=== PATIENT | female | born 1945 | race American Indian/Alaskan Native ===

== ENCOUNTER 2016-09-24 15:41 | Inpatient (IN) | payer MEDICARE, BC ==
[2016-09-24] MEDS ORDERED: Sodium Chloride 0.9% 1,000 ML IV ONE (16:15)
--- NOTE | 2016-09-24 16:49 | C.PDOC ---
History Of Present Illness 71 y/o female presents to the ED with complains of syncopal episode. Pt had dialysis 2 days ago, went shopping and had syncopal episode, fell and hit left orbital area on ground. EMS arrived wanting to take her to [place] which she refused so she had appointment with Dr Ambrocio velasquez who referred her to ED for CT scan and evaluation. Pt reports feeling weaker than usual right after dialysis. Denies vision changes, chest pain, SOB, abdominal pain, vomiting, back pain or any other complaints. Time Seen by Provider: 09/24/16 16:13 Chief Complaint (Nursing): Syncope History Per: Patient History/Exam Limitations: no limitations Onset/Duration Of Symptoms: Mins Current Symptoms Are (Timing): Gone Activity At Onset Of Symptoms: Walking Fall Associated With With Symptoms: Yes Severity: Mild Recent travel outside of the [place] States: No Past Medical History Reviewed: Historical Data, Nursing Documentation, Vital Signs Vital Signs: Last Vital Signs Temp 97.5 F L 09/24/16 16:00 Pulse 65 09/24/16 16:00 Resp 16 09/24/16 16:00 BP 167/67 H 09/24/16 16:00 Pulse Ox 96 09/24/16 18:27 - Medical History PMH: HTN, End Stage Renal Disease, Chronic Kidney Disease Family History: States: Unknown Family Hx - Social History Hx Alcohol Use: No Hx Substance Use: No Review Of Systems Except As Marked, All Systems Reviewed And Found Negative. Constitutional: Negative for: Fever Eyes: Negative for: Vision Change Cardiovascular: Negative for: Chest Pain Respiratory: Negative for: Shortness of Breath Gastrointestinal: Negative for: Vomiting, Abdominal Pain Musculoskeletal: Negative for: Back Pain Neurological: Positive for: Other (syncopal episode) Physical Exam - Physical Exam Appears: Non-toxic, No Acute Distress Skin: Warm, Dry, No Rash Head: Normacephalic, Abrasion (left brow), No Laceration, Other (ecchymostic area to left orbital area) Eye(s): bilateral: PERRL, EOMI Nose: Normal Neck: Normal ROM, Supple Chest: Symmetrical Cardiovascular: Rhythm Regular Respiratory: Normal Breath Sounds, No Rales, No Rhonchi, No Wheezing Gastrointestinal/Abdominal: Soft, No Tenderness Back: No Vertebral Tenderness, No Paraspinal Tenderness Extremity: No Pedal Edema Extremity: Bilateral: Atraumatic Neurological/Psych: Oriented x3, Normal Speech, Normal Cognition ED Course And Treatment - Laboratory Results Result Diagrams: 09/24/16 16:56 09/24/16 16:56 Lab Interpretation: No Acute Changes ECG: Interpreted By Me ECG Rhythm: Sinus Rhythm, 1st Degree HB Rate From EC O2 Sat by Pulse Oximetry: 96 (on room air) Pulse Ox Interpretation: Normal - Radiology CXR: Viewed By Me, Read By Radiologist CXR Interpretation: Yes: No Acute Disease - CT Scan/US CT head Other Rad Studies (CT/US): Read By Radiologist, Radiology Report Reviewed CT/US Interpretation: PROCEDURE: CT HEAD WITHOUT CONTRAST. HISTORY: R/O Bleed. COMPARISON: None available. TECHNIQUE: Axial computed tomography images were obtained through the head/brain without intravenous contrast. Radiation dose: Total exam DLP = 963.09 mGy-cm. FINDINGS: HEMORRHAGE: No intracranial hemorrhage. BRAIN: Diffuse atrophy with prominence of the ventricles and sulci noted. No mass effect or edema. Intracranial atherosclerosis. Scattered periventricular and subcortical white matter hypodensities, which are nonspecific, but often seen with chronic microvascular ischemic disease. Please note that MRI with diffusion imaging is more sensitive in the detection of acute ischemic event. VENTRICLES: No hydrocephalus. CALVARIUM: Unremarkable. PARANASAL SINUSES: Unremarkable as visualized. No significant inflammatory changes. MASTOID AIR CELLS: Unremarkable as visualized. No inflammatory changes. OTHER FINDINGS: Left preseptal and facial soft tissue swelling. 2 tiny rounded radiopaque densities are noted within the soft tissues at the level of the left lateral orbit. IMPRESSION: Generalized atrophy. Nonspecific white matter changes. Left preseptal and facial soft tissue swelling. 2 tiny rounded radiopaque densities are noted within the soft tissues at the level of the left lateral orbit. FINDINGS: RIGHT ORBIT: RIGHT BONY ORBIT: Normal. RIGHT INTRAORBITAL STRUCTURES: Globe : Normal. Extraocular muscles: Normal. Post septal space: Normal. Optic Nerve : Normal. Lacrimal Apparatus: Normal. RIGHT PRESEPTAL SOFT TISSUES: Unremarkable. LEFT ORBIT: LEFT BONY ORBIT: Normal. LEFT INTRAORBITAL STRUCTURES: Globe: Normal. Extraocular muscles: Normal. Post septal space: Normal. Optic Nerve: Normal. . Lacrimal Apparatus: Slight asymmetry, prominence of the lacrimal apparatus on the left compared to the right. This is at the site of the soft tissue injury. Galvez apparatus is by the closest soft tissue foreign body by 6.4 mm. LEFT PRESEPTAL SOFT TISSUES: Preseptal soft tissue swelling. At the site of the swelling, lateral to the orbit, 2 punctate foreign bodies within the soft tissues. Please refer to series 3, images 103-106. OTHER: None. IMPRESSION: Periorbital preseptal soft tissue swelling with 2 small foreign bodies within the cutaneous and subcutaneous tissues. No osseous, globe or retro Conal abnormalities. CT orbits Other Rad Studies (CT/US): Read By Radiologist, Radiology Report Reviewed CT/US Interpretation: PROCEDURE: CT ORBITS WITHOUT CONTRAST. HISTORY: Trauma , left orbital swelling. COMPARISON: None available. TECHNIQUE: Axial CT images of the orbits were obtained. Coronal and sagittal reformats were generated. Radiation dose: Total exam DLP = mGy-cm. FINDINGS: RIGHT ORBIT: RIGHT BONY ORBIT: Normal. RIGHT INTRAORBITAL STRUCTURES: Globe: Normal. Extraocular muscles: Normal. Post septal space: Normal. Optic Nerve: Normal. Lacrimal Apparatus: Normal. RIGHT PRESEPTAL SOFT TISSUES: Unremarkable. LEFT ORBIT: LEFT BONY ORBIT: Normal. LEFT INTRAORBITAL STRUCTURES: Globe: Normal. Extraocular muscles: Normal. Post septal space: Normal. Optic Nerve: Normal. . Lacrimal Apparatus: Slight asymmetry, prominence of the lacrimal apparatus on the left compared to the right. This is at the site of the soft tissue injury. Galvez apparatus is by the closest soft tissue foreign body by 6.4 mm. LEFT PRESEPTAL SOFT TISSUES: Preseptal soft tissue swelling. At the site of the swelling, lateral to the orbit, 2 punctate foreign bodies within the soft tissues. Please refer to series 3, images 103- 106. OTHER: None. IMPRESSION: Periorbital preseptal soft tissue swelling with 2 small foreign bodies within the cutaneous and subcutaneous tissues. No osseous, globe or retro Conal abnormalities. Progress Note: Plan: labs, CT head, EKG, CXR, UA, IV fluids Reassessment Condition: Unchanged - Physician Consult Information Physician Contacted: Newton Albrecht Outcome Of Conversation: admit to hospitalist Disposition Discussed With : Obinna Brush Doctor Will See Patient In The: Hospital - Disposition Disposition: HOSPITALIZED Disposition Time: 18:30 Condition: STABLE - POA Present On Arrival: None - Clinical Impression Clinical Impression: Syncope, ESRD (end stage renal disease) on dialysis - PA / MACHINE FEEDER / Resident Statement MD/DO has reviewed & agrees with the documentation as recorded. - Scribe Statement The provider has reviewed the documentation as recorded by the Una Evans All medical record entries made by the Una were at my direction and personally dictated by me. I have reviewed the chart and agree that the record accurately reflects my personal performance of the history, physical exam, medical decision making, and the department course for this patient. I have also personally directed, reviewed, and agree with the discharge instructions and disposition. Decision To Admit - Pt Status Changed To: Hospital Disposition Of: Observation - InPatient: Physician Admission Certification: I certify that this patient requires 2 or more midnights of care for the following reason:: syncope. ESRD of HD - . Bed Request Type: Telemetry Admitting Physician: Obinna Brush Patient Diagnosis: Syncope, ESRD (end stage renal disease) on dialysis
[2016-09-24 17:01] LABS: BASO # 0.1 K/uL (0.0-0.2); BASO % 1.9 % (0.0-2.0); EOS # 0.5 K/uL (0.0-0.7); EOS % 8.3 % (0.0-4.0); HEMATOCRIT 35.5 % (34.0-47.0); LYMPH # 1.3 K/uL (1.0-4.3); MEAN CELL VOLUME 93.5 fL (81.0-99.0); MEAN CORPUSCULAR HEMOGLOBIN 31.1 pg (27.0-31.0); MEAN CORPUSCULAR HGB CONC 33.3 g/dL (33.0-37.0); MEAN PLATELET VOLUME 7.8 fL (7.2-11.7); MONO # 0.7 K/uL (0.0-0.8); MONO % 11.9 % (0.0-10.0); RED CELL DISTRIBUTION WIDTH 16.2 % (11.5-14.5)
[2016-09-24 17:09] LABS: CHLORIDE 88 mmol/L (98-107)
[2016-09-24 17:10] LABS: POTASSIUM 4.3 mmol/L (3.6-5.2); SODIUM 138 mmol/L (132-148)
[2016-09-24 17:13] LABS: ALB/GLOB RATIO 1.1 (1.0-2.1); ALKALINE PHOSPHATASE 65 U/L (38-126); ALT/SGPT 17 U/L (9-52); AST/SGOT 19 U/L (14-36); BILIRUBIN,TOTAL 0.4 mg/dL (0.2-1.3); BLOOD UREA NITROGEN 67 mg/dL (7-17); CARBON DIOXIDE 33 mmol/L (22-30); GFR AFRICAN-AMERICAN 6; GLUCOSE,RANDOM 90 mg/dL (65-105); TOTAL PROTEIN 7.5 g/dL (6.3-8.3)
[2016-09-24 17:14] LABS: CALCIUM 9.7 mg/dl (8.6-10.4)
--- NOTE | 2016-09-24 17:19 | RAD ---
HISTORY: SOB COMPARISON: Chest x-ray performed 10/25/12 TECHNIQUE: Chest PA and lateral FINDINGS: LUNGS: No focal consolidation. Please note that chest x-ray has limited sensitivity for the detection of pulmonary masses. PLEURA: No significant pleural effusion identified. No definite pneumothorax . CARDIOVASCULAR: Vascular stent. Mild cardiomegaly. Atherosclerotic calcifications of the aorta. OSSEOUS STRUCTURES: Degenerative changes of the spine. VISUALIZED UPPER ABDOMEN: Unremarkable. OTHER FINDINGS: None. IMPRESSION: No focal consolidation, significant pleural effusion, or definite pneumothorax identified.
[2016-09-24 17:42] LABS: RBC URINE 3 /hpf (0-3); URINE BACTERIA RARE (<OCC); URINE BILIRUBIN NEGATIVE (NEGATIVE); URINE BLOOD NEGATIVE (NEGATIVE); URINE COLOR Yellow (YELLOW); URINE GLUCOSE (UA) 1+ mg/dL (Normal); URINE KETONE NEGATIVE (NEGATIVE); URINE LEUKOCYTE ESTERASE 3+ Leu/uL (Negative); URINE PROTEIN 2+ mg/dL (NEGATIVE); URINE UROBILINOGEN NORMAL mg/dL (0.2-1.0); WBC URINE 87 /hpf (0-5)
--- NOTE | 2016-09-24 17:46 | CT ---
PROCEDURE: CT HEAD WITHOUT CONTRAST. HISTORY: R/O Bleed COMPARISON: None available. TECHNIQUE: Axial computed tomography images were obtained through the head/brain without intravenous contrast. Radiation dose: Total exam DLP = 963.09 mGy-cm. FINDINGS: HEMORRHAGE: No intracranial hemorrhage. BRAIN: Diffuse atrophy with prominence of the ventricles and sulci noted. No mass effect or edema. Intracranial atherosclerosis. Scattered periventricular and subcortical white matter hypodensities, which are nonspecific, but often seen with chronic microvascular ischemic disease. Please note that MRI with diffusion imaging is more sensitive in the detection of acute ischemic event. VENTRICLES: No hydrocephalus. CALVARIUM: Unremarkable. PARANASAL SINUSES: Unremarkable as visualized. No significant inflammatory changes. MASTOID AIR CELLS: Unremarkable as visualized. No inflammatory changes. OTHER FINDINGS: Left preseptal and facial soft tissue swelling. 2 tiny rounded radiopaque densities are noted within the soft tissues at the level of the left lateral orbit. IMPRESSION: Generalized atrophy. Nonspecific white matter changes. Left preseptal and facial soft tissue swelling. 2 tiny rounded radiopaque densities are noted within the soft tissues at the level of the left lateral orbit.
[2016-09-24] MEDS ORDERED: Sodium Chloride 0.9% 1,000 ML ONE (18:03)
--- NOTE | 2016-09-24 18:04 | CT ---
PROCEDURE: CT ORBITS WITHOUT CONTRAST. HISTORY: Trauma, left orbital swelling. COMPARISON: None available. TECHNIQUE: Axial CT images of the orbits were obtained. Coronal and sagittal reformats were generated. Radiation dose: Total exam DLP = mGy-cm. FINDINGS: RIGHT ORBIT: RIGHT BONY ORBIT: Normal. RIGHT INTRAORBITAL STRUCTURES: Globe: Normal. Extraocular muscles: Normal. Post septal space: Normal. Optic Nerve: Normal. Lacrimal Apparatus: Normal. RIGHT PRESEPTAL SOFT TISSUES: Unremarkable. LEFT ORBIT: LEFT BONY ORBIT: Normal. LEFT INTRAORBITAL STRUCTURES: Globe: Normal. Extraocular muscles: Normal. Post septal space: Normal Optic Nerve: Normal. . Lacrimal Apparatus: Slight asymmetry, prominence of the lacrimal apparatus on the left compared to the right. This is at the site of the soft tissue injury. Galvez apparatus is by the closest soft tissue foreign body by 6.4 mm. LEFT PRESEPTAL SOFT TISSUES: Preseptal soft tissue swelling. At the site of the swelling, lateral to the orbit, 2 punctate foreign bodies within the soft tissues. Please refer to series 3, images 103-106. OTHER: None. IMPRESSION: Periorbital preseptal soft tissue swelling with 2 small foreign bodies within the cutaneous and subcutaneous tissues. No osseous, globe or retro Conal abnormalities.
--- NOTE | 2016-09-24 22:42 | CP.PCM.HP ---
<Mirta Ny - Last Filed: 09/24/16 22:12> History of Present Illness - History of Present Illness History of Present Illness: CC "syncope" HPI: Pt is 71F with medical history significant for CAD s/p WILBER placement to RCA and LAD (February & March 2016), CHF, hypertension, and ESRD on hemodialysis TTF who presented to the emergency room after experiencing syncopal event. Patient states she was shopping in the [employer] when she "felt off" and needed to grasp the counter for support. She then came to realize she was on the floor on her left side for unknown length of time due to syncopal event. Patient denies feeling dizzy, confused, nauseous, chest pain, palpitations, or balance impairment. She notes she had hemodialysis earlier that day and was informed more fluid was taken off. The admissions manager rn called an ambulance and patient's blood pressure was 152/70. Patient had trauma to left superior orbit and pain to left hip from the fall. She did not want to be brought to [facility] due to the expected snow storm and because she had an appointment with her lug loader, Dr. Albrecht, today. Dr. Albrecht instructed the patient to come to [facility]3] for CT head as patient takes daily Plavix and Aspirin. Patient denies current symptoms including fever, chills, dizziness, lightheadedness, weakness, chest pain, palpitations, shortness of breath, lower extremity edema, nausea, vomiting, abdominal pain, diarrhea, constipation, and urinary symptoms. Patient admits to pain to palpation to left periorbital region but denies change in vision. PMH: per HPI Medications: Lisinopril 10 mg po BID, Carvidolol 25 mg po BID, Norvasc 10 mg po daily, Hydralazine 25 mg po TID ASA 81 mg po daily, Plavix 75 mg po daily, Atorvastatin 40 mg po HS, Dexlansoprazole 30 mg po daily, Sensipar 30 mg po HS, Renvela 800 mg 2 tab TID, Renavite 1 tab po AM. Allergies: wheat, chocolate, NKDA Family Hx: Mother - [place] at age 54, HTN , Father - pacemaker Surgical Hx: CAD s/p WILBER placement to RCA and LAD (February & March 2016), left cataract surgery, L fistula placement 2012 Social: Never smoker, denies alcohol and illicit drug use Present on Admission - Present on Admission Any Indicators Present on Admission: No History of DVT/PE: No History of Uncontrolled Diabetes: No Urinary Catheter: No Decubitus Ulcer Present: No Review of Systems - Constitutional Constitutional: absent: Chills, Fever, Headache, Lethargy, Weakness - EENT Eyes: Pain, Other (left eye bruising and swelling). absent: Change in Vision Ears: absent: Tinnitus, Disequilibrium, Dizziness Nose/Mouth/Throat: absent: Nasal Discharge - Cardiovascular Cardiovascular: absent: Chest Pain, Diaphoresis, Dyspnea, Leg Edema - Respiratory Respiratory: absent: Dyspnea, Chest Congestion - Gastrointestinal Gastrointestinal: absent: Abdominal Pain, Constipation, Diarrhea, Nausea, Vomiting - Genitourinary Genitourinary: absent: Change in Urinary Stream, Urinary Frequency - Musculoskeletal Musculoskeletal: absent: Arthralgias, Back Pain - Integumentary Integumentary: absent: Changing Lesions, New Lesions - Neurological Neurological: Syncope. absent: Dizziness, Numbness, Focal Weakness, Lack of Coordination, Tingling, Vertigo, Weakness - Psychiatric Psychiatric: absent: Anxiety Past Patient History - Past Social History Smoking Status: Never Smoked - CARDIAC Hx Hypertension: Yes - RENAL Hx Chronic Kidney Disease: Yes - PSYCHIATRIC Hx Substance Use: No Meds Allergies/Adverse Reactions: Allergies Allergy/AdvReac Type Severity Reaction Status Date / Time wheat Allergy ANGIOEDEMA Verified 09/24/16 20:54 chocolate Allergy ITCHING Uncoded 09/24/16 20:54 Physical Exam - Constitutional Appears: Non-toxic, No Acute Distress - Head Exam Head Exam: absent: ATRAUMATIC Additional comments: ecchymosis and edema to left periorbital region, abrasion to left brow - Eye Exam Eye Exam: EOMI, Normal appearance, PERRL - ENT Exam ENT Exam: Mucous Membranes Moist - Neck Exam Neck exam: Positive for: Full Rom, Normal Inspection - Respiratory Exam Respiratory Exam: Clear to Auscultation Bilateral, NORMAL BREATHING PATTERN. absent: Rales, Rhonchi, Wheezes - Cardiovascular Exam Cardiovascular Exam: +S1, +S2. absent: Bradycardia, Tachycardia, Diastolic murmur, Systolic Murmur Additional comments: no carotid bruit - GI/Abdominal Exam GI & Abdominal Exam: Normal Bowel Sounds, Soft. absent: Distended, Firm, Guarding - Extremities Exam Extremities exam: Positive for: pedal pulses present. Negative for: pedal edema , tenderness Additional comments: ecchymosis to left hip, tender to palpation - Back Exam Back exam: NORMAL INSPECTION - Neurological Exam Neurological exam: Alert, CN II-XII Intact, Oriented x3 - Skin Skin Exam: Intact Additional comments: ecchymoses to left periorbital region and hip Results - Vital Signs Recent Vital Signs: Last Vital Signs Temp 97.6 F 09/24/16 20:35 Pulse 69 09/24/16 20:35 Resp 20 09/24/16 20:35 BP 190/73 H 09/24/16 20:35 Pulse Ox 96 09/24/16 20:35 - Labs Result Diagrams: 09/24/16 16:56 09/24/16 16:56 Assessment & Plan - Assessment and Plan (Free Text) Assessment: 1. Syncope EKG: sinus rhythm with first degree AV block, LVH Troponin I <0.0120 f/u AMBER panel f/u MRI Brain w/o contrast, carotid doppler f/u Echo Cardiology consult, Dr. Albrecht, help appreciated. Cardiology consult, Dr. Escobedo - tilt table test CT Head: generalized atrophy, nonspecific white matter changes, no intracranial hemorrhage 2. L Periorbital Trauma secondary to syncopal event CT Orbit: periorbital preseptal spft tissue swelling with 2 small foreign bodies within cutaneous and subcutaneous tissue. No osseous, global, or retrocanal abnormalities 3. L Hip Ecchymosis f/u L hip X-RAY 4. ESRD on HD HD schedule TTF Continue home medications Sensipar Renvela Renavite BUN/CR: 67/8.6 Nephrology consult, Dr. Rosas - help appreciated, f/u recs 5. CAD s/p WILBER placement to LAD and RCA Continue home medications: ASA 81 mg po daily Plavix 75 mg po daily Crestor 40 mg po HS Carvidolol 25 mg po BID Lisinopril 10 mg po BID 6. CHF f/u Echo f/u pro-BNP Cardio consulted 7. HTN Continue home medications Norvasc 10 mg po daily Lisinopril 10 mg po BID Hydralazine 25 mg po TID 8. UTI Initial UA contaminated - + Leuk Esterase f/u repeat UA and Urine culture 9. Prophylaxis Heparin 5,000 U SC q8 SCD Protonix 40 mg po daily - Date & Time Date: 09/24/16 Time: 23:01 <GarcíaKrystian cardenas Mandy - Last Filed: 09/25/16 06:27> Results - Vital Signs Recent Vital Signs: Last Vital Signs Temp 98.0 F 09/24/16 23:40 Pulse 65 09/25/16 02:26 Resp 20 09/24/16 23:40 BP 159/69 H 09/25/16 04:05 Pulse Ox 96 09/24/16 23:40 - Labs Result Diagrams: 09/24/16 16:56 09/24/16 16:56 Labs: Laboratory Results - last 24 hr 09/24/16 22:37 Total Creatine Kinase 49 CK-MB (Mass) 1.50 Troponin I, Quant < 0.0120 Assessment & Plan - Date & Time Date: 09/25/16 (I have seen and examined the patient. I agree with the findings and plan of care as documented by Dr. Ny. Patient with syncopal event. CT head negative. Also hip xray and CT orbit also done. 2D Echo and carotid dopplers. ROMIx3 with EKG. Consult to Cardio also due to CAD history. Consult Nephro for ESRD on dialysis. Monitor for acute changes. Fall precautions.) Time: 06:25 Attending/Attestation - Attestation I have personally seen and examined this patient.: Yes I have fully participated in the care of the patient.: Yes I have reviewed all pertinent clinical information: Yes
[2016-09-25 07:36] LABS: BASO # 0.1 K/uL (0.0-0.2); BASO % 1.3 % (0.0-2.0); EOS # 0.5 K/uL (0.0-0.7); EOS % 7.9 % (0.0-4.0); HEMATOCRIT 33.2 % (34.0-47.0); LYMPH # 1.2 K/uL (1.0-4.3); LYMPH % 17.6 % (20.0-40.0); MEAN CELL VOLUME 94.3 fL (81.0-99.0); MEAN CORPUSCULAR HGB CONC 33.9 g/dL (33.0-37.0); MEAN PLATELET VOLUME 7.9 fL (7.2-11.7); MONO # 0.7 K/uL (0.0-0.8); MONO % 10.4 % (0.0-10.0); RED CELL DISTRIBUTION WIDTH 16.5 % (11.5-14.5); WHITE BLOOD COUNT 6.8 K/uL (4.8-10.8)
[2016-09-25 08:26] LABS: CHLORIDE 93 mmol/L (98-107)
[2016-09-25 08:27] LABS: POTASSIUM 4.4 mmol/L (3.6-5.2); SODIUM 139 mmol/L (132-148)
[2016-09-25 08:29] LABS: ALKALINE PHOSPHATASE 59 U/L (38-126); ALT/SGPT 24 U/L (9-52); AST/SGOT 15 U/L (14-36); BILIRUBIN,TOTAL 0.4 mg/dL (0.2-1.3); BLOOD UREA NITROGEN 74 mg/dL (7-17); CARBON DIOXIDE 29 mmol/L (22-30); GFR AFRICAN-AMERICAN 5; GLUCOSE,RANDOM 82 mg/dL (65-105); TOTAL PROTEIN 6.9 g/dL (6.3-8.3)
[2016-09-25 08:30] LABS: CALCIUM 9.5 mg/dl (8.6-10.4); MAGNESIUM 2.7 mg/dL (1.6-2.3)
[2016-09-25 08:37] LABS: RBC URINE < 1 /hpf (0-3); URINE BACTERIA OCC (<OCC); URINE BILIRUBIN NEGATIVE (NEGATIVE); URINE BLOOD NEGATIVE (NEGATIVE); URINE COLOR Yellow (YELLOW); URINE GLUCOSE (UA) 1+ mg/dL (Normal); URINE KETONE NEGATIVE (NEGATIVE); URINE LEUKOCYTE ESTERASE 3+ Leu/uL (Negative); URINE PROTEIN 2+ mg/dL (NEGATIVE); URINE UROBILINOGEN NORMAL mg/dL (0.2-1.0); WBC URINE 10 /hpf (0-5)
[2016-09-25 08:46] LABS: T4 5.18 ug/dL (5.5-11.0)
[2016-09-25 09:00] LABS: THYROID STIMULATING HORMONE 0.52 mIU/L (0.46-4.68)
[2016-09-25 09:34] LABS: FOLATE > 20.0 ng/mL
[2016-09-25] MEDS ORDERED: Pantoprazole 40 mg EC Tab PO SCH (10:00)
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
[2016-09-25] MEDS: Multivitamin Vitamin B Complex (Nephro-Vite) Tab PO SCH (10:25)
--- NOTE | 2016-09-25 10:54 | RAD ---
PROCEDURE: HISTORY: fall, L hip bruising COMPARISON: None TECHNIQUE: AP view of the pelvis and applicable frog leg views obtained. FINDINGS: Bone mineralization appears normal Bilateral axial joint space narrowing with acetabular spurring and superolateral femoral head spurring is present. No fracture is appreciated. No dislocation noted. Tiny subchondral cystic changes along each superolateral hip joint space aspect is suggested Coalescent calcifications within the uterine fibroid are suggested. Atherosclerotic vascular calcifications are present IMPRESSION: No fracture seen Bilateral hip osteoarthrosisIf symptoms persist/warrant consider MRI.
--- NOTE | 2016-09-25 11:13 | CP.PCM.CON ---
History of Present Illness - History of Present Illness History of Present Illness: 71 y/o fema;e with ESRD on maintenance HD TTS , CAD S/P drud eluting stents in & 03/2016, CHF was admitted after she had syncopal episode . Pt had dialysis on Thursday & according to Pt she left 2 Kg below her EDW. Pt had denied CP, palp or SOB Past Patient History - Past Medical History & Family History Past Medical History?: Yes - Past Social History Smoking Status: Never Smoked - CARDIAC Hx Hypertension: Yes - PULMONARY Hx Respiratory Disorders: Yes - NEUROLOGICAL Hx Neurological Disorder: Yes Hx Syncope: Yes (fell two days ago while shopping) - HEENT Hx HEENT Problems: No - RENAL Hx Chronic Kidney Disease: Yes - ENDOCRINE/METABOLIC Hx Endocrine Disorders: No - HEMATOLOGICAL/ONCOLOGICAL Hx Blood Disorders: No - INTEGUMENTARY Hx Dermatological Problems: Yes Other/Comment: swelling and hematoma of left eye upper and lower lids. - MUSCULOSKELETAL/RHEUMATOLOGICAL Hx Musculoskeletal Disorders: No Hx Falls: Yes (2 days ago) - GASTROINTESTINAL Hx Gastrointestinal Disorders: No Other/Comment: left upper arm AV fistula By Dr.Mc Cervantes - PSYCHIATRIC Hx Substance Use: No - SURGICAL HISTORY Hx Surgeries: Yes Hx Coronary Stent: Yes Meds Allergies/Adverse Reactions: Allergies Allergy/AdvReac Type Severity Reaction Status Date / Time wheat Allergy ANGIOEDEMA Verified 09/24/16 20:54 chocolate Allergy ITCHING Uncoded 09/24/16 20:54 - Medications Medications: Current Medications Amlodipine Besylate (Norvasc) 10 mg PO DAILY [facility] Last Admin: 09/25/16 10:25 Dose: 10 mg Aspirin (Ecotrin) 81 mg PO DAILY [facility] Last Admin: 09/25/16 10:25 Dose: 81 mg Carvedilol (Coreg) 25 mg PO BID [facility] Last Admin: 09/25/16 10:25 Dose: 25 mg Cinacalcet (Sensipar) 30 mg PO HS [facility] Clopidogrel Bisulfate (Plavix) 75 mg PO DAILY [facility] Last Admin: 09/25/16 10:25 Dose: 75 mg Heparin Sodium (Porcine) (Heparin) 5,000 units SC Q8 [facility] Last Admin: 09/25/16 06:11 Dose: 5,000 units Hydralazine HCl (Apresoline) 25 mg PO TID [facility] Last Admin: 09/25/16 10:25 Dose: 25 mg Lisinopril (Zestril) 10 mg PO BID [facility] Last Admin: 09/25/16 10:26 Dose: 10 mg Pantoprazole Sodium (Protonix Ec Tab) 40 mg PO DAILY [facility] Last Admin: 09/25/16 10:26 Dose: 40 mg Rosuvastatin Calcium (Crestor) 40 mg PO [facility] Sevelamer Carbonate (Renvela) 800 mg PO TID [facility] Last Admin: 09/25/16 10:26 Dose: 800 mg Vitamin B Complex/Vit C/Folic Acid (Nephro-Karla) 1 tab PO DAILY [facility] Last Admin: 09/25/16 10:25 Dose: 1 tab Physical Exam - Constitutional Appears: No Acute Distress - Head Exam Additional comments: lt periorbital ecchymosis & swelling - Eye Exam Additional comments: No icterus - ENT Exam ENT Exam: Mucous Membranes Moist - Neck Exam Additional comments: Neckj supple - Respiratory Exam Respiratory Exam: NORMAL BREATHING PATTERN Additional comments: Lungs clera Slightly decreased BS over Lt base - Cardiovascular Exam Cardiovascular Exam: REGULAR RHYTHM Additional comments: No rub - GI/Abdominal Exam GI & Abdominal Exam: Soft - Extremities Exam Additional comments: No edema or cyanosis - Neurological Exam Additional comments: A&O x3 Moves all extrem equally B/L Results - Vital Signs Recent Vital Signs: Last Vital Signs Temp 98.2 F 09/25/16 07:00 Pulse 91 H 09/25/16 08:37 Resp 20 09/25/16 07:00 BP 157/71 H 09/25/16 10:25 Pulse Ox 97 09/25/16 07:00 - Labs Result Diagrams: 09/25/16 07:09 09/25/16 07:09 Labs: Laboratory Results - last 24 hr 09/24/16 09/25/16 09/25/16 22:37 07:09 07:14 WBC 6.8 RBC 3.52 L Hgb 11.3 Hct 33.2 L MCV 94.3 MCH 32.0 H MCHC 33.9 RDW 16.5 H Plt Count 109 L MPV 7.9 Neut % (Auto) 62.8 Lymph % (Auto) 17.6 L [place] % (Auto) 10.4 H Eos % (Auto) 7.9 H Baso % (Auto) 1.3 Neut # 4.3 Lymph # 1.2 [place] # 0.7 Eos # 0.5 Baso # 0.1 Sodium 139 Potassium 4.4 Chloride 93 L Carbon Dioxide 29 Anion Gap 21 H BUN 74 H Creatinine 9.6 H* Est GFR ( Amer) 5 Est GFR (Non-Af Amer) 4 Random Glucose 82 Hemoglobin A1c 5.1 Calcium 9.5 Phosphorus 5.0 H Magnesium 2.7 H Total Bilirubin 0.4 AST 15 ALT 24 Alkaline Phosphatase 59 Total Creatine Kinase 49 40 CK-MB (Mass) 1.50 1.51 Troponin I, Quant < 0.0120 < 0.0120 NT-Pro-B Natriuret Pep 9820 H Total Protein 6.9 Albumin 3.4 L Globulin 3.5 Albumin/Globulin Ratio 1.0 Vitamin B12 678 25-OH Vitamin D Total 80.0 Folate > 20.0 Thyroxine (T4) 5.18 L TSH 3rd Generation 0.52 Urine Color Yellow Urine Clarity Hazy Urine pH 9.0 Ur Specific [place] 1.006 Urine Protein 2+ H Urine Glucose (UA) 1+ Urine Ketones Negative Urine Blood Negative Urine Nitrate Negative Urine Bilirubin Negative Urine Urobilinogen Normal Ur Leukocyte Esterase 3+ H Urine WBC (Auto) 10 H Urine RBC (Auto) < 1 Ur Squamous Epith Cells 12 H Urine Bacteria Occ H Assessment & Plan - Assessment and Plan (Free Text) Assessment: ESRD SHPT HTN Syncopal episode CAD,CHF Plan: Scheduled for dialysis todat Neuro w/u is unremarkable Continue current Meds
--- NOTE | 2016-09-25 14:01 | MRI ---
PROCEDURE: MRI BRAIN WITHOUT CONTRAST HISTORY: SYNCOPE COMPARISON: None. TECHNIQUE: Multiplanar, multisequence MR images of the brain were obtained without intravenous contrast enhancement. FINDINGS: HEMORRHAGE: None DWI: No evidence of an acute or early subacute infarction. BRAIN PARENCHYMA: No mass effect or edema. Chronic microvascular changes are seen in the periventricular white matter. VENTRICLES: Unremarkable. No hydrocephalus. CRANIUM: Unremarkable. ORBITS: Grossly unremarkable. PARANASAL SINUSES/MASTOIDS: Clear VASCULAR SYSTEM: Skull base flow voids intact. OTHER FINDINGS: None. IMPRESSION: No acute intracranial findings
[2016-09-25 14:26] LABS: MAGNESIUM 2.7 mg/dL (1.6-2.3); PHOSPHOROUS 5.2 mg/dL (2.5-4.5)
--- NOTE | 2016-09-25 14:36 | VASCLAB ---
PROCEDURE: HISTORY: syncope COMPARISON: None available. TECHNIQUE: Grayscale and duplex Doppler evaluation of the cervical carotid and vertebral arteries were performed. The common carotid, carotid bifurcations and cervical Internal Carotid Artery (ICA) and proximal External Carotid Artery (ECA) were evaluated. The vertebral arteries were evaluated for gross patency and flow direction. Report prepared by Gurjit Ojeda, BS, RVT FINDINGS: RIGHT CAROTID ARTERIES: 1. Common Carotid Artery: No significant focal plaque formation of the right common carotid artery. Maximum Peak Systolic velocity: 57 cm/sec: End-diastolic velocity 0 cm/sec. 2. Carotid Bifurcation: Calcific plaque formation. Maximum Peak Systolic velocity: 71 cm/sec: End-diastolic velocity 4 cm/sec. 3. Internal Carotid Artery: Moderate plaque formation of the right proximal ICA which does not results in hemodynamically significant stenosis. Plaque description: Calcific 3.1. Proximal Segment: Peak systolic velocity 68 cm/sec: End-diastolic velocity 5 cm/sec - % stenosis 0-15% 3.2. Middle Segment: Peak systolic velocity 66 cm/sec: End-diastolic velocity 12 cm/sec - % stenosis 0-15% 3.3. Distal Segment: Peak systolic velocity 90 cm/sec: End-diastolic velocity 13 cm/sec - % stenosis 0-15% 4. External Carotid Artery: No significant focal plaque formation. Peak systolic velocity 106 cm/sec 5. ICA/CCA Ratio: 1.6 LEFT CAROTID ARTERIES: 1. Common Carotid Artery: No significant focal plaque formation of the left common carotid artery. Maximum Peak Systolic velocity: 56 cm/sec: End-diastolic velocity 9 cm/sec. 2. Carotid Bifurcation: Calcific plaque formation. Maximum Peak Systolic velocity: 68 cm/sec: End-diastolic velocity 12 cm/sec. 3. Internal Carotid Artery: Moderate plaque formation of the left proximal ICA which does not results in hemodynamically significant stenosis. Plaque description: Heterogeneous 3.1. Proximal Segment: Peak systolic velocity 61 cm/sec: End-diastolic velocity 12 cm/sec - % stenosis 0-15% 3.2. Middle Segment: Peak systolic velocity 65 cm/sec: End-diastolic velocity 15 cm/sec - % stenosis 0-15% 3.3. Distal Segment: Peak systolic velocity 64 cm/sec: End-diastolic velocity 11 cm/sec - % stenosis 0-15% 4. External Carotid Artery: No significant focal plaque formation. Peak systolic velocity 105 cm/sec 5. ICA/CCA Ratio: 1.2 VERTEBRAL ARTERIES: 1. Right Vertebral Artery: The right vertebral artery flow direction is antegrade. 2. Left Vertebral Artery: The left vertebral artery flow direction is antegrade. OTHER FINDINGS: 1. Right Brachial Blood pressure: 180 mmHg. 2. Left Brachial Blood pressure: mmHg. IMPRESSION: RIGHT: Duplex scan does not suggest hemodynamically significant stenosis of the right extracranial carotid arteries. LEFT: Duplex scan does not suggest hemodynamically significant stenosis of the left extracranial carotid arteries.
[2016-09-25 14:42] LABS: FREE T4 1.15 ng/dL (0.78-2.19)
[2016-09-25 14:56] LABS: THYROID STIMULATING HORMONE 0.29 mIU/L (0.46-4.68)
[2016-09-25 15:04] LABS: HOMOCYSTEINE 26.4 umol/L (4.7-12.6)
--- NOTE | 2016-09-25 15:05 | US ---
Limited left hip soft tissue ultrasound History: Injury. Evaluate for hematoma. Comparison: None available. Technique: Limited sonographic ultrasound through the soft tissues of the left lateral hip. Comparison: X-ray dated 09/25/2016 Findings: Reticulation and heterogeneity seen within the soft tissues at the lateral aspect of the left hip suggestive for edema and swelling but without evidence of gross hematoma or fluid collection. Impression: Reticulation and heterogeneity seen within the soft tissues at the lateral aspect of the left hip suggestive for edema and swelling but without evidence of gross hematoma or fluid collection. If pain persists, consider further evaluation with MRI.
[2016-09-25 15:32] LABS: FOLATE > 20.0 ng/mL
--- NOTE | 2016-09-25 16:07 | CARD ---
APPROVED REPORT EKG Measurement Heart [id number] <Conclusion> Sinus rhythm with 1st degree AV block Left ventricular hypertrophy with repolarization abnormality Abnormal ECG
[2016-09-25] MEDS ORDERED: Bacitracin 500 Units/gm Oint Foilpak UD TOP ONE (18:07)
--- NOTE | 2016-09-25 18:15 | CP.PCM.PN ---
Subjective - Date & Time of Evaluation Date of Evaluation: 09/25/16 Time of Evaluation: 08:00 - Subjective Subjective: Internal medicine progress note for Dr. Trudi Duncan, PGY-1 Pt S & E at bedside. Pt reports some pain with pressure over left eye ecchymoses, left thigh ecchymosis. Patient did not sleep well due to noisy roommate. No other complaints at this time. Denies N/V/F/C, SOB, CP, palpitations, dizzines, headache, vision changes. Is tolerating diet. Objective - Vital Signs/Intake and Output Vital Signs (last 24 hours): Temp Pulse Resp BP Pulse Ox 98.1 F 65 20 149/68 98 09/25/16 14:45 09/25/16 16:05 09/25/16 16:05 09/25/16 16:45 09/25/16 14:45 - Medications Medications: Current Medications Amlodipine Besylate (Norvasc) 10 mg PO DAILY [facility] Last Admin: 09/25/16 10:25 Dose: 10 mg Aspirin (Ecotrin) 81 mg PO DAILY [facility] Last Admin: 09/25/16 10:25 Dose: 81 mg Bacitracin (Bacitracin) 1 ea TOP ONCE ONE Stop: 09/25/16 18:08 Carvedilol (Coreg) 25 mg PO BID [facility] Last Admin: 09/25/16 10:25 Dose: 25 mg Cinacalcet (Sensipar) 30 mg PO HS [facility] Clopidogrel Bisulfate (Plavix) 75 mg PO DAILY [facility] Last Admin: 09/25/16 10:25 Dose: 75 mg Famotidine (Pepcid) 20 mg PO DAILY [facility] Heparin Sodium (Porcine) (Heparin) 5,000 units SC Q8 [facility] Last Admin: 09/25/16 13:48 Dose: 5,000 units Hydralazine HCl (Apresoline) 25 mg PO BID [facility] Lisinopril (Zestril) 10 mg PO BID [facility] Last Admin: 09/25/16 10:26 Dose: 10 mg Rosuvastatin Calcium (Crestor) 10 mg PO HS [facility] Sevelamer Carbonate (Renvela) 800 mg PO TID [facility] Last Admin: 09/25/16 13:48 Dose: 800 mg Vitamin B Complex/Vit C/Folic Acid (Nephro-Karla) 1 tab PO DAILY [facility] Last Admin: 09/25/16 10:25 Dose: 1 tab - Labs Labs: 09/25/16 07:09 09/25/16 07:09 - Constitutional Appears: Non-toxic, No Acute Distress - Head Exam Head Exam: absent: ATRAUMATIC (Left periorbital swelling, tenderness, ecchymoses , left eyebrow laceration w/scab in place) - Eye Exam Eye Exam: Periorbital swelling, Periorbital tenderness. absent: Conjunctival injection, Normal appearance, Scleral icterus Pupil Exam: NORMAL ACCOMODATION - ENT Exam ENT Exam: Mucous Membranes Moist, Normal Exam - Neck Exam Neck Exam: Full ROM, Normal Inspection - Respiratory Exam Respiratory Exam: Clear to Ausculation Bilateral, NORMAL BREATHING PATTERN. absent: Rales, Rhonchi, Wheezes - Cardiovascular Exam Cardiovascular Exam: REGULAR RHYTHM, +S1, +S2 - GI/Abdominal Exam GI & Abdominal Exam: Soft, Normal Bowel Sounds. absent: Distended, Firm, Guarding, Rigid, Tenderness - Extremities Exam Extremities Exam: Tenderness (Left lateral hip with tenderness, swelling, large ecchymosis ). absent: Pedal Edema - Neurological Exam Neurological Exam: Alert, Awake, Oriented x3 - Psychiatric Exam Psychiatric exam: Normal Affect, Normal Mood - Skin Skin Exam: Abrasion, Warm. absent: Intact (laceration w/scab in place over left orbit), Normal Color (ecchymosis over left periorbital, left lateral hip) Assessment and Plan - Assessment and Plan (Free Text) Assessment: 1. Syncope EKG: sinus rhythm with first degree AV block, LVH Trops neg x 3 MRI Brain w/o contrast w/No acute intracranial findings CT Brain w/findings of generalized atrophy. Nonspecific white matter changes. Left preseptal and facial soft tissue swelling. 2 tiny rounded radiopaque densities are noted within the soft tissues at the level of the left lateral orbit. Carotid doppler w/duplex scan does not suggest hemodynamically significant stenosis of R or L extracranial carotid arteries FU Echo report- pending Cards recs- FU Echo, FU carotid doppler, cont ASA, Norvasc, Coreg, Plavix, Lisinopril, Crestor, cont current mgmt 2. L Periorbital Trauma secondary to syncopal event Ice for swelling ESR 31 CT Orbit: periorbital preseptal spft tissue swelling with 2 small foreign bodies within cutaneous and subcutaneous tissue. No osseous, global, or retrocanal abnormalities Periorbital laceration was cleaned with high flow NS, hydrogen peroxide- depth of wound assessed, no foreign bodies noted during cleaning - Bacitracin and bandage for now CT orbit - reassessing for foriegn body presence 3. L Hip Ecchymosis Ice for swelling L hip X-RAY negative for fxr L hip U/S w/reticulation and heterogeneity seen within the soft tissues at the lateral aspect of the left hip suggestive for edema and swelling but without evidence of gross hematoma or fluid collection. If pain persists, consider further evaluation with MRI. 4. ESRD on HD HD schedule TTF Continue home medications Sensipar, Renvela, Renavite BUN/CR: 67/8.6 For HD today Vit D level 80 Folate >20 Nephro following 5. CAD s/p WILBER placement to LAD and RCA FT4 1.15 T4 5.18 TSH 0.29 Prolactin 140.5 Continue home medications: ASA 81 mg po daily Plavix 75 mg po daily Crestor 40 mg po HS Carvidolol 25 mg po BID Lisinopril 10 mg po BID 6. CHF f/u Echo pBNP 9820 Cardio recs as above 7. HTN BP 157/71 Continue home medications Norvasc 10 mg po daily Lisinopril 10 mg po BID Hydralazine 25 mg po TID 8. UTI Initial UA contaminated - + Leuk Esterase Repeat UA w/3+ LE, occ bacteria, squamous epithelial cells- likely contaminated again FU Urine culture 9. Prophylaxis Heparin 5,000 U SC q8 [facility] Protonix 40 mg po daily 10. Dispo Cont on tele FU test results Orthostatics to be done by med student KATE attending
--- NOTE | 2016-09-25 19:01 | CARD ---
APPROVED REPORT EXAM: Two-dimensional and M-mode echocardiogram with Doppler and color Doppler. INDICATION Syncope Congestive Heart Failure ESRD RISK FACTORS Hypertension M-Mode DIMENSIONS RVDd1.79 (2.1-3.2cm)Left Atrium (MM)3.64 (2.5-4.0cm) IVSd0.94 (0.7-1.1cm)Aortic Root2.80 (2.2-3.7cm) LVDd4.30 (4.0-5.6cm)Aortic Cusp Exc.1.69 (1.5-2.0cm) PWd1.92 (0.7-1.1cm)FS (%) 29 % LVDs3.06 (2.0-3.8cm)LVEF (%)56 (>50%) Aortic Valve AoV Peak Goxojjnb859.8cm/Robson Peak GR.13mmHg Mitral Valve MV E Igyjwqzx275.0cm/sMV A Nhhwzrnq717.4cm/sE/A ratio1.1 TDI E/Lateral E'0.0E/Medial E'0.0 Tricuspid Valve TR Peak Ulfvucix522ir/sTR Peak Gr.[id number] LEFT VENTRICLE The left ventricle is normal size. There is moderate concentric left ventricular hypertrophy. The left ventricular function is normal. The left ventricular ejection fraction is within the normal range. Transmitral Doppler flow pattern is Grade I-abnormal relaxation pattern. RIGHT VENTRICLE The right ventricle is normal size. There is normal right ventricular wall thickness. The right ventricular systolic function is normal. ATRIA The left atrium size is normal. The right atrium size is normal. The atrial septum is aneurysmal. AORTIC VALVE The aortic valve is mildly sclerotic. MITRAL VALVE The mitral valve is moderately thickened. Mitral regurgitation is trace. TRICUSPID VALVE There is mild pulmonary hypertension. GREAT VESSELS The aortic root is normal in size. The IVC is normal in size and collapses >50% with inspiration. PERICARDIAL EFFUSION There is no pericardial effusion. <Conclusion> The left ventricle is normal size. There is moderate concentric left ventricular hypertrophy. The left ventricular function is normal. The left ventricular ejection fraction is within the normal range. Transmitral Doppler flow pattern is Grade I-abnormal relaxation pattern. There is mild pulmonary hypertension.
--- NOTE | 2016-09-25 19:45 | CON ---
DATE: 09/25/2016 REASON FOR CONSULTATION: Syncopal attack. CHIEF COMPLAINT: The patient was advised to come to the [facility] because of syncopal attack, as per the e commerce marketing analyst. From neurological point of view, I was called in to evaluate her for further management. HISTORY OF PRESENT ILLNESS: The patient is a 71-year-old right-handed female presenting with syncopal attack while she was in the [employer] [place]. She claims that she had dialysis on Thursday. After that, because of the snow indication, she went to purchase something. She felt something inside felt wrong. She was leaning on the counter, next thing she realized she was on the floor. On her way to the floor, she hit her head against the hard floor and she bruised her left side. She lost her consciousness for a brief period of time. 911 was called. The patient was evaluated. The patient was advised to go to the hospital because she does have an appointment the following day. She decided not to go to the hospital. She went home. She stayed home and during her followup with the e commerce marketing analyst, following this history, she was advised to come to the hospital for further management. PAST MEDICAL HISTORY: Hypertension, end-stage renal disease, and dyslipidemia. PERSONAL HISTORY: Denies smoking or alcohol use. ALLERGIES: WHEAT AND CHOCOLATE. MEDICATIONS: Apresoline, Crestor, Ecotrin, heparin, Norvasc, Pepcid, Plavix, Sensipar and Zestril. PHYSICAL EXAMINATION: VITAL SIGNS: Blood pressure 154/75, mean arterial pressure of 100, respiratory rate 16, temperature afebrile. GENERAL: The patient is examined in dialysis unit. She is sitting comfortably in the chair. NECK: Supple. No carotid bruit. HEART: Sounds bradycardia with second sound split. EXTREMITIES: Distal muscle atrophy noted. NEUROLOGIC EXAMINATION: No anterograde amnesia. No confabulation. No suicidal ideation, no depression. The patient naming, repetition, fluency, comprehension all within normal. She was able to give a nice history for her problem, how did it happen. CRANIAL NERVE EXAMINATION: Visual field intact, pupils reactive to light. Extraocular movements normal, left eyelid is swollen due to the trauma, mild ecchymosis around the orbit on the left side. No facial sensory deficit. No facial asymmetry. Hearing is normal. Tongue is midline. Good gag. MOTOR EXAMINATION: Outstretched hands with eyes closed, no drift noted. Power is symmetric on either side. DEEP TENDON REFLEXES: Biceps, brachioradialis, triceps, knee 2+. Both ankles are absent. Plantars are downgoing. SENSORY EXAMINATION: Mild distal sensory motor neuropathy. COORDINATION: Isyhmb-[id number]-[id number] test is intact. GAIT: Deferred at this time. CONCLUSION: Upon reviewing her history and neurologic examination, the patient is presenting with syncopal attack, which is probably secondary to or electrolyte imbalance. The current picture does not show any neurological insult; however, seizure should be ruled out or ischemic process should be ruled out. 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 BLOOD WORKUP: WBC 6.8, hemoglobin 11.3, hematocrit 33.2, platelet 119. Sodium 139, potassium 4.4, chloride 93, bicarbonate 29, BUN 74, creatinine 9.6, GFR 5, glucose 82. Hemoglobin A1c 5.21, phosphorus 5.2, magnesium 2.7, calcium 9.5. Homocystine 26.4, vitamin D 80. Folate more than 20. TSH 0.29. Prolactin 140. Urine 3+ leukocytes, occasional bacteria. WBCs and RBCs were seen. Carotid Doppler does not show any hemodynamic stenosis. MRI of the brain does not show any mass effect or ischemic process. RECOMMENDATION: Electroencephalogram to be done. That will be reviewed by me. The patient is stable for next 24-hour period. If medically stable, the patient can be discharged and should have followup visit with me as outpatient. Chavo Aguilera MD cc: [id number] TT: 09/25/2016 19:44:04 Confirmation # [id number] Dictation # [id number] tricia KHALIL
--- NOTE | 2016-09-25 20:51 | CP.PCM.CON ---
History of Present Illness - History of Present Illness History of Present Illness: Patient seen and evaluated Admitted for Syncope Denies chest pain and dyspnea ECHO, Carotid negative For Tilt table test by Dr. Escobedo tomorrow PMH: CAD, CHF, HTN, ESRD on HD PSH: 2 drug eluting stents in RCA and LAD, L AV fistula and Cataract surgery Home meds: Lisinopril 10mg BID, Coreg 25mg BID, Norvasc 10mg, Hydralazine 25mg TID, ASA 81mg, Plavix 75mg, Lipitor 40mg, Dexalant 30mg, Sensipar 30mg, Renvela 1600mg BID, Renevite All: NKDA, wheat, chocolate SH: Denies tobacco, Etoh or drug use FH: Dad- HTN, Mom- PA@54 Review of Systems - Review of Systems Review of Systems: As per HPI Physical Exam - Constitutional Appears: No Acute Distress - Head Exam Head Exam: ATRAUMATIC, NORMAL INSPECTION, NORMOCEPHALIC - Eye Exam Eye Exam: EOMI Pupil Exam: NORMAL ACCOMODATION, PERRL Additional comments: L periorbital edema and eccymosis - ENT Exam ENT Exam: Mucous Membranes Moist - Neck Exam Neck exam: Positive for: Normal Inspection - Respiratory Exam Respiratory Exam: Clear to Auscultation Bilateral, NORMAL BREATHING PATTERN. absent: Rales, Rhonchi, Wheezes, Respiratory Distress - Cardiovascular Exam Cardiovascular Exam: REGULAR RHYTHM, +S1, +S2. absent: Gallop, Rubs, Systolic Murmur - GI/Abdominal Exam GI & Abdominal Exam: Soft - Extremities Exam Extremities exam: Positive for: normal inspection. Negative for: calf tenderness, pedal edema - Neurological Exam Neurological exam: Alert, CN II-XII Intact, Oriented x3 - Psychiatric Exam Psychiatric exam: Normal Affect, Normal Mood - Skin Skin Exam: Dry, Normal Color, Warm Past Patient History - Past Medical History & Family History Past Medical History?: Yes - Past Social History Smoking Status: Never Smoked - CARDIAC Hx Hypertension: Yes - PULMONARY Hx Respiratory Disorders: Yes - NEUROLOGICAL Hx Neurological Disorder: Yes Hx Syncope: Yes (fell two days ago while shopping) - HEENT Hx HEENT Problems: No - RENAL Hx Chronic Kidney Disease: Yes - ENDOCRINE/METABOLIC Hx Endocrine Disorders: No - HEMATOLOGICAL/ONCOLOGICAL Hx Blood Disorders: No - INTEGUMENTARY Hx Dermatological Problems: Yes Other/Comment: swelling and hematoma of left eye upper and lower lids. - MUSCULOSKELETAL/RHEUMATOLOGICAL Hx Musculoskeletal Disorders: No Hx Falls: Yes (2 days ago) - GASTROINTESTINAL Hx Gastrointestinal Disorders: No Other/Comment: left upper arm AV fistula By Dr.Mc Cervantes - PSYCHIATRIC Hx Substance Use: No - SURGICAL HISTORY Hx Surgeries: Yes Hx Coronary Stent: Yes Meds Allergies/Adverse Reactions: Allergies Allergy/AdvReac Type Severity Reaction Status Date / Time wheat Allergy ANGIOEDEMA Verified 09/24/16 20:54 chocolate Allergy ITCHING Uncoded 09/24/16 20:54 - Medications Medications: Current Medications Amlodipine Besylate (Norvasc) 10 mg PO DAILY [facility] Last Admin: 09/25/16 10:25 Dose: 10 mg Aspirin (Ecotrin) 81 mg PO DAILY [facility] Last Admin: 09/25/16 10:25 Dose: 81 mg Carvedilol (Coreg) 25 mg PO BID [facility] Last Admin: 09/25/16 18:51 Dose: 25 mg Cinacalcet (Sensipar) 30 mg PO [facility] Clopidogrel Bisulfate (Plavix) 75 mg PO DAILY [facility] Last Admin: 09/25/16 10:25 Dose: 75 mg Famotidine (Pepcid) 20 mg PO DAILY [facility] Heparin Sodium (Porcine) (Heparin) 5,000 units SC Q8 [facility] Last Admin: 09/25/16 13:48 Dose: 5,000 units Hydralazine HCl (Apresoline) 25 mg PO BID [facility] Last Admin: 09/25/16 18:48 Dose: 25 mg Lisinopril (Zestril) 10 mg PO BID [facility] Last Admin: 09/25/16 18:48 Dose: 10 mg Rosuvastatin Calcium (Crestor) 10 mg PO HS [facility] Sevelamer Carbonate (Renvela) 800 mg PO TID [facility] Last Admin: 09/25/16 18:48 Dose: 800 mg Vitamin B Complex/Vit C/Folic Acid (Nephro-Karla) 1 tab PO DAILY [facility] Last Admin: 09/25/16 10:25 Dose: 1 tab Results - Vital Signs Recent Vital Signs: Last Vital Signs Temp 98.1 F 09/25/16 18:00 Pulse 69 09/25/16 20:00 Resp 20 09/25/16 18:00 BP 168/76 H 09/25/16 18:51 Pulse Ox 98 09/25/16 18:00 - Labs Result Diagrams: 09/25/16 07:09 09/25/16 07:09 Labs: Laboratory Results - last 24 hr 09/24/16 09/25/16 09/25/16 22:37 07:09 07:14 WBC 6.8 RBC 3.52 L Hgb 11.3 Hct 33.2 L MCV 94.3 MCH 32.0 H MCHC 33.9 RDW 16.5 H Plt Count 109 L MPV 7.9 Neut % (Auto) 62.8 Lymph % (Auto) 17.6 L [place] % (Auto) 10.4 H Eos % (Auto) 7.9 H Baso % (Auto) 1.3 Neut # 4.3 Lymph # 1.2 [place] # 0.7 Eos # 0.5 Baso # 0.1 ESR Sodium 139 Potassium 4.4 Chloride 93 L Carbon Dioxide 29 Anion Gap 21 H BUN 74 H Creatinine 9.6 H* Est GFR ( Amer) 5 Est GFR (Non-Af Amer) 4 POC Glucose (mg/dL) Random Glucose 82 Hemoglobin A1c 5.1 Calcium 9.5 Phosphorus 5.0 H Magnesium 2.7 H Total Bilirubin 0.4 AST 15 ALT 24 Alkaline Phosphatase 59 Total Creatine Kinase 49 40 CK-MB (Mass) 1.50 1.51 Troponin I, Quant < 0.0120 < 0.0120 NT-Pro-B Natriuret Pep 9820 H Total Protein 6.9 Albumin 3.4 L Globulin 3.5 Albumin/Globulin Ratio 1.0 Vitamin B12 678 25-OH Vitamin D Total 80.0 Folate > 20.0 Homocysteine Free T4 Thyroxine (T4) 5.18 L TSH 3rd Generation 0.52 Prolactin Urine Color Yellow Urine Clarity Hazy Urine pH 9.0 Ur Specific [place] 1.006 Urine Protein 2+ H Urine Glucose (UA) 1+ Urine Ketones Negative Urine Blood Negative Urine Nitrate Negative Urine Bilirubin Negative Urine Urobilinogen Normal Ur Leukocyte Esterase 3+ H Urine WBC (Auto) 10 H Urine RBC (Auto) < 1 Ur Squamous Epith Cells 12 H Urine Bacteria Occ H 09/25/16 09/25/16 13:57 18:45 WBC RBC Hgb Hct MCV MCH MCHC RDW Plt Count MPV Neut % (Auto) Lymph % (Auto) [place] % (Auto) Eos % (Auto) Baso % (Auto) Neut # Lymph # [place] # Eos # Baso # ESR 31 H Sodium Potassium Chloride Carbon Dioxide Anion Gap BUN Creatinine Est GFR ( Amer) Est GFR (Non-Af Amer) POC Glucose (mg/dL) 99 Random Glucose Hemoglobin A1c Calcium Phosphorus 5.2 H Magnesium 2.7 H Total Bilirubin AST ALT Alkaline Phosphatase Total Creatine Kinase CK-MB (Mass) Troponin I, Quant NT-Pro-B Natriuret Pep Total Protein Albumin Globulin Albumin/Globulin Ratio Vitamin B12 774 25-OH Vitamin D Total Folate > 20.0 Homocysteine 26.4 H Free T4 1.15 Thyroxine (T4) TSH 3rd Generation 0.29 L Prolactin 140.5 H Urine Color Urine Clarity Urine pH Ur Specific [place] Urine Protein Urine Glucose (UA) Urine Ketones Urine Blood Urine Nitrate Urine Bilirubin Urine Urobilinogen Ur Leukocyte Esterase Urine WBC (Auto) Urine RBC (Auto) Ur Squamous Epith Cells Urine Bacteria Assessment & Plan - Assessment and Plan (Free Text) Assessment: 1. Syncope ECHO and Carotid, Trops negative Tilt Table test by Dr. Escobedo tomorrow 2. L Periorbital Trauma secondary to syncopal event Ice for swelling ESR 31 CT Orbit: periorbital preseptal spft tissue swelling with 2 small foreign bodies within cutaneous and subcutaneous tissue. No osseous, global, or retrocanal abnormalities Periorbital laceration was cleaned with high flow NS, hydrogen peroxide- depth of wound assessed, no foreign bodies noted during cleaning - Bacitracin and bandage for now CT orbit - reassessing for foriegn body presence 3. L Hip Ecchymosis Ice for swelling L hip X-RAY negative for fxr L hip U/S w/reticulation and heterogeneity seen within the soft tissues at the lateral aspect of the left hip suggestive for edema and swelling but without evidence of gross hematoma or fluid collection. If pain persists, consider further evaluation with MRI. 4. ESRD on HD HD schedule TTF Continue home medications Sensipar, Renvela, Renavite BUN/CR: 67/8.6 For HD today Vit D level 80 Folate >20 Nephro following 5. CAD s/p WILBER placement to LAD and RCA FT4 1.15 T4 5.18 TSH 0.29 Prolactin 140.5 Continue home medications: ASA 81 mg po daily Plavix 75 mg po daily Crestor 40 mg po HS Carvidolol 25 mg po BID Lisinopril 10 mg po BID 6. CHF f/u Echo pBNP 9820 Cardio recs as above 7. HTN BP 157/71 Continue home medications Norvasc 10 mg po daily Lisinopril 10 mg po BID Hydralazine 25 mg po TID 8. UTI Initial UA contaminated - + Leuk Esterase Repeat UA w/3+ LE, occ bacteria, squamous epithelial cells- likely contaminated again FU Urine culture 9. Prophylaxis Heparin 5,000 U SC q8 SCD Protonix 40 mg po daily 10. Dispo Cont on tele FU test results Orthostatics to be done by med student
--- NOTE | 2016-09-26 08:15 | PN ---
DATE: 09/26/2016 TIME OF EVALUATION: 7:25 a.m. NEUROLOGICAL PROBLEM: Syncope. PHYSICAL EXAMINATION: VITAL SIGNS: Blood pressure 162/77, mean arterial pressure of 105, respiratory rate 16, temperature afebrile. NECK: Supple. NEUROLOGIC: The patient is more awake, alert, oriented to person, place, and time. Speech is clear. Left orbital ecchymosis from the fall. The patient slept well. The rest of the examination is unc hanged to compare with my earlier exam. WORKUP: Carotid Doppler: No stenosis. MRI of the brain: No acute pathology noted. RECOMMENDATIONS: The patient is also scheduled to have an electroencephalogram which is still pendin g. After this workup, she can go home and should have a followup visit with me as outpatient. The p atient may need a polysomnogram to studies her hidden sleep related breathing disorder as well as ext ended hour ambulatory electroencephalogram to rule out electrographic seizures. Chavo Aguilera MD cc: [id number] TT: 09/26/2016 08:14:51 Confirmation # [id number] Dictation # [id number] helio
--- NOTE | 2016-09-26 08:20 | CP.PCM.PN ---
Subjective - Date & Time of Evaluation Date of Evaluation: 09/26/16 Time of Evaluation: 08:05 - Subjective Subjective: Cardiology Progress Note for Dr. Escobedo Patient seen and examined at bedside. There were no acute overnight events. She had her L eye irrigated yesterday by Dr. Duncan. She denies feeling any vision changes, pain, chest pain, SOB, n/v/d, numbness/tingling. Objective - Vital Signs/Intake and Output Vital Signs (last 24 hours): Temp Pulse Resp BP Pulse Ox 98.4 F 65 18 139/72 98 09/26/16 07:07 09/26/16 07:07 09/26/16 07:07 09/26/16 07:07 09/26/16 07:07 - Medications Medications: Current Medications Amlodipine Besylate (Norvasc) 10 mg PO DAILY [facility] Last Admin: 09/25/16 10:25 Dose: 10 mg Aspirin (Ecotrin) 81 mg PO DAILY [facility] Last Admin: 09/25/16 10:25 Dose: 81 mg Carvedilol (Coreg) 25 mg PO BID [facility] Last Admin: 09/25/16 18:51 Dose: 25 mg Cinacalcet (Sensipar) 30 mg PO HS [facility] Last Admin: 09/25/16 21:21 Dose: 30 mg Clopidogrel Bisulfate (Plavix) 75 mg PO DAILY [facility] Last Admin: 09/25/16 10:25 Dose: 75 mg Famotidine (Pepcid) 20 mg PO DAILY [facility] Heparin Sodium (Porcine) (Heparin) 5,000 units SC Q8 [facility] Last Admin: 09/26/16 05:22 Dose: 5,000 units Hydralazine HCl (Apresoline) 25 mg PO BID [facility] Last Admin: 09/25/16 18:48 Dose: 25 mg Lisinopril (Zestril) 10 mg PO BID [facility] Last Admin: 09/25/16 18:48 Dose: 10 mg Rosuvastatin Calcium (Crestor) 10 mg PO HS [facility] Last Admin: 09/25/16 21:21 Dose: 10 mg Sevelamer Carbonate (Renvela) 800 mg PO TID [facility] Last Admin: 09/25/16 18:48 Dose: 800 mg Vitamin B Complex/Vit C/Folic Acid (Nephro-Karla) 1 tab PO DAILY [facility] Last Admin: 09/25/16 10:25 Dose: 1 tab - Labs Labs: 09/25/16 07:09 09/25/16 07:09 - Constitutional Appears: No Acute Distress - Head Exam Head Exam: ATRAUMATIC, NORMAL INSPECTION, NORMOCEPHALIC - Eye Exam Eye Exam: Normal appearance, PERRL Pupil Exam: NORMAL ACCOMODATION, PERRL - ENT Exam ENT Exam: Mucous Membranes Moist - Neck Exam Neck Exam: Normal Inspection - Respiratory Exam Respiratory Exam: Clear to Ausculation Bilateral, NORMAL BREATHING PATTERN. absent: Rales, Rhonchi, Wheezes - Cardiovascular Exam Cardiovascular Exam: REGULAR RHYTHM, +S1, +S2. absent: Gallop, Rubs, Murmur - Extremities Exam Extremities Exam: Normal Inspection. absent: Calf Tenderness, Pedal Edema - Neurological Exam Neurological Exam: Alert, Awake, CN II-XII Intact, Oriented x3 - Psychiatric Exam Psychiatric exam: Normal Affect, Normal Mood - Skin Skin Exam: Dry, Intact, Normal Color, Warm Assessment and Plan - Assessment and Plan (Free Text) Assessment: This is a 71Y F with PMH CHF, HTN, CAD s/p drug eluting stent x 2, ESRD on HD who was admitted for 1) Syncopal Episode 2) Trauma to L Hip and L eye 3) ESRD on HD T,T,F 4) CAD 6) CHF Plan: - Echo showed EF of 56%, LVH and mild pulmonary HTN - Carotid doppler mild stenosis - Continue ASA, Norvasc, Coreg, Plavix, Lisinopril, Crestor - Brain MRI did not show any acute intracranial process - Continue HD schedule - Tilt table test today GI ppx: Protonix DVT ppx: Plavix Case seen, reviewed and discussed with Dr. Gregg Boucher PGY1
[2016-09-26] MEDS: Multivitamin Vitamin B Complex (Nephro-Vite) Tab PO SCH (11:09)
--- NOTE | 2016-09-26 11:33 | CP.PCM.PN ---
Subjective - Date & Time of Evaluation Date of Evaluation: 09/26/16 Time of Evaluation: 23:00 - Subjective Subjective: Feels better today. No duzzuness Objective - Vital Signs/Intake and Output Vital Signs (last 24 hours): Temp Pulse Resp BP Pulse Ox 98.4 F 65 18 164/68 H 98 09/26/16 07:07 09/26/16 07:07 09/26/16 07:07 09/26/16 11:10 09/26/16 07:07 - Medications Medications: Current Medications Amlodipine Besylate (Norvasc) 10 mg PO DAILY [facility] Last Admin: 09/26/16 11:09 Dose: 10 mg Aspirin (Ecotrin) 81 mg PO DAILY [facility] Last Admin: 09/26/16 11:09 Dose: 81 mg Carvedilol (Coreg) 25 mg PO BID [facility] Last Admin: 09/26/16 11:10 Dose: 25 mg Cinacalcet (Sensipar) 30 mg PO HS [facility] Last Admin: 09/25/16 21:21 Dose: 30 mg Clopidogrel Bisulfate (Plavix) 75 mg PO DAILY [facility] Last Admin: 09/26/16 11:08 Dose: 75 mg Famotidine (Pepcid) 20 mg PO DAILY [facility] Last Admin: 09/26/16 11:09 Dose: 20 mg Heparin Sodium (Porcine) (Heparin) 5,000 units SC Q8 [facility] Last Admin: 09/26/16 05:22 Dose: 5,000 units Hydralazine HCl (Apresoline) 25 mg PO BID [facility] Last Admin: 09/26/16 11:09 Dose: 25 mg Lisinopril (Zestril) 10 mg PO BID [facility] Last Admin: 09/26/16 11:09 Dose: 10 mg Rosuvastatin Calcium (Crestor) 10 mg PO HS [facility] Last Admin: 09/25/16 21:21 Dose: 10 mg Sevelamer Carbonate (Renvela) 800 mg PO TID [facility] Last Admin: 09/26/16 11:09 Dose: 800 mg Vitamin B Complex/Vit C/Folic Acid (Nephro-Karla) 1 tab PO DAILY [facility] Last Admin: 09/26/16 11:09 Dose: 1 tab - Labs Labs: 09/25/16 07:09 09/25/16 07:09 - Eye Exam Additional comments: Imoroving swelling & ecchymosis of lt eye - Respiratory Exam Additional comments: Lungs clear - Cardiovascular Exam Cardiovascular Exam: REGULAR RHYTHM - Extremities Exam Additional comments: No edema or cyanosis Assessment and Plan - Assessment and Plan (Free Text) Assessment: S/P Syncopal episode. Neuro w/u in progress ESRD on maint dialysis HTN CAD, CHF Plan: Dialysis wsa tolerated well yesterday BP contolled For dialysis tpmorrow
--- NOTE | 2016-09-26 12:33 | CT ---
PROCEDURE: CT MAXILLOFACIAL BONES WITHOUT CONTRAST HISTORY: foreign body assessment COMPARISON: Comparison is made to the previous CT of the head and CT of the orbit dated 09/24/2016 TECHNIQUE: Contiguous axial CT images of the maxillofacial bones were obtained. Coronal and sagittal reformats were generated. Radiation dose: Total exam DLP = 767.5 mGy-cm. FINDINGS: Suboptimal study due to patient motion. NASAL BONES: Unremarkable. ORBITS: Again seen is left periorbital/ preseptal soft tissue swelling. Again seen are 2 adjacent with defined high density round foreign body or calcification at the lateral aspect of the left with the largest structure measures 3.1 millimeter. These 2 high attenuation foreign body or calcification seen at the subcutaneous lateral to the lacrimal gland. No evidence of retrobulbar hematoma or foreign body. The globes are intact the left lens is not visualized. Correlate clinically for prior cataract surgery on the left side. There is a small droplet of subcutaneous air seen at the anterior aspect of the preseptal left orbit. PARANASAL SINUSES/ MASTOIDS: Clear. MAXILLA: Unremarkable. MANDIBLE/ TEMPOROMANDIBULAR JOINTS: The assessment of the mandible is suboptimal due to patient's motion. There are multiple teeth fillings which associated with streak artifacts. SKULL BASE: Unremarkable. TEMPORAL BONES: Middle ears and mastoid grossly unremarkable. OTHER FINDINGS: None. IMPRESSION: Two adjacent well defined foreign bodies or calcification again seen at the lateral aspect of subcutaneous preseptal left orbit . The largest high density structure measures 3.1 millimeter. No evidence of foreign body or acute pathology at the postseptal space bilaterally. No evidence of acute displaced fracture in the maxillofacial bone.
--- NOTE | 2016-09-26 14:25 | OP ---
PROCEDURE DATE: 09/26/2016 INDICATIONS: Syncope. TEST: Tilt table test. The patient was tilted at 75 degrees for 35 minutes to 45 minutes head up tilt with positive tilt tab le test. Her blood pressure went from 171 over 35 minutes down to about 116/60 and the patient was s ymptomatic, also slightly lost consciousness, regaining consciousness when tilted down. Blood pressu re resumed to 175. PLAN: Probably to not take off as much fluid during dialysis. The patient is a hypertensive patient . I do also suggest JOSEF ceron as well. Miguel Ángel Escobedo MD cc: [id number] TT: 09/26/2016 12:40:40 tn
--- NOTE | 2016-09-26 17:21 | CP.PCM.PN ---
Subjective - Date & Time of Evaluation Date of Evaluation: 09/26/16 Time of Evaluation: 08:35 - Subjective Subjective: Internal medicine progress note for Dr. Brush Pt reports some pain with pressure over left eye ecchymoses, left thigh ecchymosis. She reports that her eye feels better today. No other complaints at this time. Denies N/V/F/C, SOB, CP, palpitations, dizzines, headache, vision changes. Is tolerating diet. Objective - Vital Signs/Intake and Output Vital Signs (last 24 hours): Temp Pulse Resp BP Pulse Ox 98.1 F 58 L 20 137/62 96 09/26/16 16:08 09/26/16 16:08 09/26/16 16:08 09/26/16 16:08 09/26/16 16:08 - Medications Medications: Current Medications Amlodipine Besylate (Norvasc) 10 mg PO DAILY [facility] Last Admin: 09/26/16 11:09 Dose: 10 mg Aspirin (Ecotrin) 81 mg PO DAILY [facility] Last Admin: 09/26/16 11:09 Dose: 81 mg Carvedilol (Coreg) 25 mg PO BID [facility] Last Admin: 09/26/16 11:10 Dose: 25 mg Cinacalcet (Sensipar) 30 mg PO HS [facility] Last Admin: 09/25/16 21:21 Dose: 30 mg Clopidogrel Bisulfate (Plavix) 75 mg PO DAILY [facility] Last Admin: 09/26/16 11:08 Dose: 75 mg Famotidine (Pepcid) 20 mg PO DAILY [facility] Last Admin: 09/26/16 11:09 Dose: 20 mg Heparin Sodium (Porcine) (Heparin) 5,000 units SC Q8 [facility] Last Admin: 09/26/16 14:02 Dose: 5,000 units Hydralazine HCl (Apresoline) 25 mg PO BID [facility] Last Admin: 09/26/16 11:09 Dose: 25 mg Lisinopril (Zestril) 10 mg PO BID [facility] Last Admin: 09/26/16 11:09 Dose: 10 mg Rosuvastatin Calcium (Crestor) 10 mg PO HS [facility] Last Admin: 09/25/16 21:21 Dose: 10 mg Sevelamer Carbonate (Renvela) 800 mg PO TID [facility] Last Admin: 09/26/16 14:02 Dose: 800 mg Vitamin B Complex/Vit C/Folic Acid (Nephro-Karla) 1 tab PO DAILY [facility] Last Admin: 09/26/16 11:09 Dose: 1 tab - Labs Labs: 09/25/16 07:09 09/25/16 07:09 - Constitutional Appears: Non-toxic, No Acute Distress - Head Exam Head Exam: ATRAUMATIC, NORMAL INSPECTION - Eye Exam Eye Exam: EOMI, Periorbital swelling, Periorbital tenderness, PERRL Pupil Exam: NORMAL ACCOMODATION - ENT Exam ENT Exam: Mucous Membranes Moist - Neck Exam Neck Exam: Full ROM - Respiratory Exam Respiratory Exam: Clear to Ausculation Bilateral, NORMAL BREATHING PATTERN. absent: Accessory Muscle Use, Chest Wall Tenderness, Respiratory Distress - Cardiovascular Exam Cardiovascular Exam: REGULAR RHYTHM, +S1, +S2 - GI/Abdominal Exam GI & Abdominal Exam: Soft, Normal Bowel Sounds. absent: Distended, Firm, Guarding, Tenderness - Extremities Exam Extremities Exam: Normal Inspection. absent: Pedal Edema Additional comments: tenderness L hip, hematoma present - Back Exam Back Exam: NORMAL INSPECTION. absent: CVA tenderness (L), CVA tenderness (R), paraspinal tenderness - Neurological Exam Neurological Exam: Alert, Awake, CN II-XII Intact, Oriented x3 Neuro motor strength exam: Left Upper Extremity: 5, Right Upper Extremity: 5, Left Lower Extremity: 5, Right Lower Extremity: 5 - Psychiatric Exam Psychiatric exam: Normal Affect, Normal Mood - Skin Skin Exam: Normal Color, Warm Assessment and Plan - Assessment and Plan (Free Text) Assessment: 1. Syncope f/u EEG - once get EEKg and clear by plastics can be discharged EKG: sinus rhythm with first degree AV block, LVH Trops neg x 3 MRI Brain w/o contrast w/No acute intracranial findings CT Brain w/findings of generalized atrophy. Nonspecific white matter changes. Left preseptal and facial soft tissue swelling. 2 tiny rounded radiopaque densities are noted within the soft tissues at the level of the left lateral orbit. Carotid doppler w/duplex scan does not suggest hemodynamically significant stenosis of R or L extracranial carotid arteries FU Echo report- pending Cards recs- FU Echo, FU carotid doppler, cont ASA, Norvasc, Coreg, Plavix, Lisinopril, Crestor, cont current mgmt 2. L Periorbital Trauma Facial CT - Foreign body possibly present in L orbit laceration despite aspiration. Will conult Dr. Gillette to see if lac can be closed and recs before discharge. Once clear for dc by plastics can go home secondary to syncopal event Ice for swelling ESR 31 CT Orbit: periorbital preseptal spft tissue swelling with 2 small foreign bodies within cutaneous and subcutaneous tissue. No osseous, global, or retrocanal abnormalities Periorbital laceration was cleaned with high flow NS, hydrogen peroxide- depth of wound assessed, no foreign bodies noted during cleaning - Bacitracin and bandage for now CT orbit - reassessing for foriegn body presence 3. L Hip Ecchymosis Ice for swelling L hip X-RAY negative for fxr L hip U/S w/reticulation and heterogeneity seen within the soft tissues at the lateral aspect of the left hip suggestive for edema and swelling but without evidence of gross hematoma or fluid collection. If pain persists, consider further evaluation with MRI. 4. ESRD on HD HD schedule T,Th,Sat Continue home medications Sensipar, Renvela, Renavite Vit D level 80 Folate >20 Nephro following 5. CAD s/p WILBER placement to LAD and RCA FT4 1.15 T4 5.18 TSH 0.29 Prolactin 140.5 Continue home medications: ASA 81 mg po daily Plavix 75 mg po daily Crestor 40 mg po HS Carvidolol 25 mg po BID Lisinopril 10 mg po BID 6. CHF f/u Echo pBNP 9820 Cardio recs as above 7. HTN BP 157/71 Continue home medications Norvasc 10 mg po daily Lisinopril 10 mg po BID Hydralazine 25 mg po TID 8. UTI Initial UA contaminated - + Leuk Esterase Repeat UA w/3+ LE, occ bacteria, squamous epithelial cells- likely contaminated again FU Urine culture - contaminated 9. Prophylaxis Heparin 5,000 U SC q8 [facility] Protonix 40 mg po daily 10. Dispo Cont on tele FU test results Orthostatics to be done by med student
--- NOTE | 2016-09-26 22:42 | CP.PCM.PN ---
Subjective - Date & Time of Evaluation Date of Evaluation: 09/26/16 Time of Evaluation: 18:00 - Subjective Subjective: Patient seen and evaluated Denies dizziness, chest pain and dyspnea Cardiac work up negative so far Objective - Vital Signs/Intake and Output Vital Signs (last 24 hours): Temp Pulse Resp BP Pulse Ox 98.1 F 58 L 20 138/70 96 09/26/16 16:08 09/26/16 16:08 09/26/16 16:08 09/26/16 17:21 09/26/16 16:08 - Medications Medications: Current Medications Amlodipine Besylate (Norvasc) 10 mg PO DAILY [facility] Last Admin: 09/26/16 11:09 Dose: 10 mg Aspirin (Ecotrin) 81 mg PO DAILY [facility] Last Admin: 09/26/16 11:09 Dose: 81 mg Carvedilol (Coreg) 25 mg PO BID [facility] Last Admin: 09/26/16 17:21 Dose: 25 mg Cinacalcet (Sensipar) 30 mg PO HS [facility] Last Admin: 09/26/16 21:50 Dose: 30 mg Clopidogrel Bisulfate (Plavix) 75 mg PO DAILY [facility] Last Admin: 09/26/16 11:08 Dose: 75 mg Famotidine (Pepcid) 20 mg PO DAILY [facility] Last Admin: 09/26/16 11:09 Dose: 20 mg Heparin Sodium (Porcine) (Heparin) 5,000 units SC Q8 [facility] Last Admin: 09/26/16 21:50 Dose: 5,000 units Hydralazine HCl (Apresoline) 25 mg PO BID [facility] Last Admin: 09/26/16 17:22 Dose: 25 mg Lisinopril (Zestril) 10 mg PO BID [facility] Last Admin: 09/26/16 17:22 Dose: 10 mg Rosuvastatin Calcium (Crestor) 10 mg PO HS [facility] Last Admin: 09/26/16 21:50 Dose: 10 mg Sevelamer Carbonate (Renvela) 800 mg PO TID [facility] Last Admin: 09/26/16 17:21 Dose: 800 mg Vitamin B Complex/Vit C/Folic Acid (Nephro-Karla) 1 tab PO DAILY [facility] Last Admin: 09/26/16 11:09 Dose: 1 tab - Labs Labs: 09/25/16 07:09 09/25/16 07:09
--- NOTE | 2016-09-27 08:09 | CP.PCM.PN ---
Subjective - Date & Time of Evaluation Date of Evaluation: 09/27/16 Time of Evaluation: 08:08 Objective - Vital Signs/Intake and Output Vital Signs (last 24 hours): Temp Pulse Resp BP Pulse Ox 98.1 F 66 20 138/70 96 09/26/16 16:08 09/26/16 23:30 09/26/16 16:08 09/26/16 17:21 09/26/16 16:08 - Medications Medications: Current Medications Amlodipine Besylate (Norvasc) 10 mg PO DAILY [facility] Last Admin: 09/26/16 11:09 Dose: 10 mg Aspirin (Ecotrin) 81 mg PO DAILY [facility] Last Admin: 09/26/16 11:09 Dose: 81 mg Carvedilol (Coreg) 25 mg PO BID [facility] Last Admin: 09/26/16 17:21 Dose: 25 mg Cinacalcet (Sensipar) 30 mg PO HS [facility] Last Admin: 09/26/16 21:50 Dose: 30 mg Clopidogrel Bisulfate (Plavix) 75 mg PO DAILY [facility] Last Admin: 09/26/16 11:08 Dose: 75 mg Famotidine (Pepcid) 20 mg PO DAILY [facility] Last Admin: 09/26/16 11:09 Dose: 20 mg Heparin Sodium (Porcine) (Heparin) 5,000 units SC Q8 [facility] Last Admin: 09/27/16 05:50 Dose: 5,000 units Hydralazine HCl (Apresoline) 25 mg PO BID [facility] Last Admin: 09/26/16 17:22 Dose: 25 mg Lisinopril (Zestril) 10 mg PO BID [facility] Last Admin: 09/26/16 17:22 Dose: 10 mg Rosuvastatin Calcium (Crestor) 10 mg PO HS [facility] Last Admin: 09/26/16 21:50 Dose: 10 mg Sevelamer Carbonate (Renvela) 800 mg PO TID [facility] Last Admin: 09/26/16 17:21 Dose: 800 mg Vitamin B Complex/Vit C/Folic Acid (Nephro-Karla) 1 tab PO DAILY [facility] Last Admin: 09/26/16 11:09 Dose: 1 tab - Labs Labs: 09/25/16 07:09 09/25/16 07:09
[2016-09-27 11:06] VITALS: RESP 17
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
[2016-09-27 12:49] VITALS: PULSE 71; TEMP 98.4; O2SAT 98
[2016-09-27] MEDS: Multivitamin Vitamin B Complex (Nephro-Vite) Tab PO SCH (12:59)
[2016-09-27 13:00] VITALS: BP 163/63
--- NOTE | 2016-09-29 08:01 | EEG ---
DATE: 09/26/2016 This is a 16-channel electroencephalogram of awake and drowsy adult. The resting electroencephalogra m consists of 40-50 microvolts, 9-11 Hz alpha activity seen in parietal and occipital leads. Anterio rly fast activity superimposed with 2-3 Hz delta activity seen in frontal and central leads. There i s generalized 2-3 Hz delta activity seen, which is consistent with early drowsiness. During the phot ic stimulation, there is some focal slowing noted over the right parietooccipital leads. EKG shows s inus bradycardia. IMPRESSION: This is a normal electroencephalogram of awake and drowsy adult. During the study, neit her electroencephalographic paroxysmal activities nor focal slowing. The focal slowing at right brisa etooccipital leads may not be clinically significant. However, if clinical suspicion is high, patien t can be benefitted on doing continuous video electroencephalogram to further study the extent of the electrographic seizures or any paroxysmal activities during the awake and sleep. Chavo Aguilera MD cc: [id number] TT: 09/29/2016 08:00:57 Confirmation # [id number] Dictation # [id number]
== END 2016-09-27 14:25 | disposition home or self-care (01) | DRG 312 ==
LOC: C.ER 15:41 → C.9E 18:24 → C.6T 19:02 → OBSVTOIN 20:36
PROVIDERS: ADMIT Family Medicine; ATTEND Internal Medicine
PROC: 5A1D00Z (ICD-10-PCS; 2016-09-25)
PROC: 4A02XFZ Measurement of Cardiac Rhythm, External Approach (ICD-10-PCS; principal; 2016-09-26)
PROC: 4A03XB1 Measurement of Arterial Pressure, Peripheral, External Approach (ICD-10-PCS; 2016-09-26)
DX: R55 Syncope and collapse (principal); I13.2 Hypertensive heart and chronic kidney disease with heart failure and with stage 5 chronic kidney disease, or end stage renal disease; N18.6 End stage renal disease; G62.9 Polyneuropathy, unspecified; S05.12XA Contusion of eyeball and orbital tissues, left eye, initial encounter; S70.02XA Contusion of left hip, initial encounter; I50.9 Heart failure, unspecified; I44.0 Atrioventricular block, first degree; I25.10 Atherosclerotic heart disease of native coronary artery without angina pectoris; W19.XXXA Unspecified fall, initial encounter; Z95.5 Presence of coronary angioplasty implant and graft; Z98.42 Cataract extraction status, left eye; Z99.2 Dependence on renal dialysis; Y92.512 Supermarket, store or market as the place of occurrence of the external cause